=== PATIENT | male | born 1985 | race Hispanic/Latino ===

== ENCOUNTER 2023-11-13 14:14 | Emergency (ER) | payer SELFPAY | END 2023-11-13 16:14 | disposition home or self-care (01) | LOC: MADERS 14:14 | DX: B34.9 Viral infection, unspecified (principal); F17.210 Nicotine dependence, cigarettes, uncomplicated; Z20.822 Contact with and (suspected) exposure to COVID-19 | CPT/HCPCS: 87635; 87804; 99283 ==